=== PATIENT | male | born 1975 | race Caucasian/White ===

== ENCOUNTER 2020-05-30 18:36 | Emergency (ER) | payer MEDICARE, SELFPAY ==
--- NOTE | ~2020-05-30 | XR_ITS ---
XR forearm RT 2V 05/30/2020 19:29 INDICATION: Right arm pain PROCEDURE: 2 views right forearm COMPARISON: No prior studies for comparison. FINDINGS: Fracture, dislocation or subluxation is not identified. There is dorsal soft tissue swellin g. No foreign bodies are identified. IMPRESSION: 1: NO ACUTE BONE OR JOINT ABNORMALITY IDENTIFIED. Reviewed, dictated and finalized at location A.
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
[2020-05-30 18:55] VITALS: BP 138/85; PULSE 101; RESP 20; TEMP 37.6; O2SAT 98
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
== END 2020-05-30 20:06 | disposition home or self-care (01) ==
PROVIDERS: Emergency Provider Nurse Practitioner
DX: S49.91XA Unspecified injury of right shoulder and upper arm, initial encounter (principal); V48.5XXA Car driver injured in noncollision transport accident in traffic accident, initial encounter
CPT/HCPCS: 73030; 73090; 99214; A4565; G0463

== ENCOUNTER 2022-05-09 10:46 | Emergency (ER) | payer OTHER, SELFPAY ==
[2022-05-09 11:12] VITALS: BP 130/71; PULSE 70; RESP 16; TEMP 36.8; O2SAT 98
--- NOTE | 2022-05-09 11:46 | ED.GENADULT ---
HPI - General Adult General Chief complaint: Upper Respiratory Infection Stated complaint: Sinus Pain,Facial Swelling Source: patient Mode of arrival: ambulatory Limitations: no limitations History of Present Illness HPI narrative: Patient presents for evaluation of sinus symptoms. He reports sinus congestion and thick mucopurulent drainage from both nares. He has maxillary swelling. He has had similar symptoms in the past with bacterial sinusitis. No fever, chills, sore throat, otalgia, cough, SOB, nausea, vomiting, diarrhea. He is not taking any medication for his symptoms. No recent sick contacts. He smokes 1 ppd. He has required oral abx in past. He is taking flonase which is minimally helping. Related Data Home Medications Medication Instructions Recorded Confirmed tramadol 50 mg tablet 50 mg PO Q4H PRN Pain 05/30/20 05/09/22 Allergies Allergy/AdvReac Type Severity Reaction Status Date / Time No Known Allergies Allergy Verified 05/09/22 11:12 Review of Systems Review of Systems: CONSTITUTIONAL: Denies fever, chills, or sweats. EYES: Denies visual changes, redness, or discharge. ENT: Reports sinus congestion and thick mucopurulent discharge from both nares. Denies sore throat, or otalgia. CARDIOVASCULAR: Denies chest pain, palpitations, or edema. RESPIRATORY: Denies cough or dyspnea. GASTROINTESTINAL: Denies abdominal pain, nausea, vomiting, or diarrhea. GENITOURINARY: Denies dysuria or hematuria. SKIN: Denies rash or itching. MUSCULOSKELETAL: Denies back pain, joint pain, or myalgia. NEUROLOGIC: Denies headache, numbness, dizziness, or weakness. PSYCHIATRIC: Denies anxiety or depression. [facility] Past Medical History Medical History Sinusitis Surgical History Surgical History No pertinent past surgical history Family History Family History Mother Diabetes mellitus Social History Social History Smoking packs per day: 1 Smoking cigarettes per day: 20.0 Smoking status: Current every day smoker Tobacco type: cigarettes Substance use: never Living arrangements: with family Gender identity (if verbalized by the patient): Male Sexual Orientation (if Verbalized by the Patient): Straight or Heterosexual Spiritual care concerns: No Exam Narrative: GENERAL: Well-appearing, well-nourished, and in no acute distress. HEAD: Normocephalic, atraumatic. EYES: PERRLA and EOMI. ENT: Nares clear, no rhinorrhea or epistaxis. Right maxillary facial tenderness and swelling present. Membranes moist. Oropharynx without tonsillar hypertrophy exudate or other lesions. Bilateral TMs pearly hall nonbulging NECK: Supple. No adenopathy or masses. No carotid bruits or JVD CHEST: Clear to auscultation. No respiratory distress. No wheezes rales or rhonchi HEART: Regular rate and rhythm. No murmur heard. Normal peripheral pulses. ABDOMEN: Soft, nontender, nondistended, normal active bowel sounds. EXTREMITIES: Normal range of motion. No edema. SKIN: Warm, dry, no rash. NEURO: No focal deficits. Alert and oriented x3. PSYCH: Normal mood and affect. Course Course Emergency Course: This is a 47-year-old male who presented with right maxillary sinus swelling and mucopurulent discharge from his nares. He meets criteria for acute bacterial rhinosinusitis. We will treat with augmentin. Follow up outpatient for further evaluation and treatment and return for worsening symptoms. Pt in agreement with plan of care Level of Care: Express Care Visit Vital Signs Vital signs: Vital Signs Temperature 36.8 C 05/09/22 11:12 Pulse Rate 70 05/09/22 11:12 Respiratory Rate 16 05/09/22 11:12 Blood Pressure 130/71 05/09/22 11:12 Pulse Oximetry 98 05/09/22 11:12 Ox
== END 2022-05-09 11:55 | disposition home or self-care (01) ==
PROVIDERS: Emergency Provider Nurse Practitioner
DX: J32.9 Chronic sinusitis, unspecified (principal); F17.210 Nicotine dependence, cigarettes, uncomplicated
CPT/HCPCS: 99213; G0463

== ENCOUNTER 2023-07-07 09:37 | Emergency (ER) | payer MEDICARE, MEDICAID, SELFPAY ==
[2023-07-07 09:50] VITALS: BP 124/78; PULSE 78; RESP 20; TEMP 37.1; O2SAT 96
--- NOTE | 2023-07-07 10:06 | ED.URI ---
HPI - URI/Sore Throat General Chief Complaint: Upper Respiratory Infection Stated Complaint: sinus infection Time Seen by Provider: 07/07/23 09:55 Source: patient Mode of arrival: ambulatory Limitations: no limitations History of Present Illness HPI Narrative: Jeffery is a 48-year-old male patient presenting to the clinic today with complaints of sinus congestion x3 days. He reports he is having a lot of sneezing, sinus pressure, and congestion. He reports he was outside over the weekend and every wounds cutting the grass and he suffers from seasonal allergies. Nasal drainage is green. He does not wish to have a COVID test. MD elicited complaint: nasal congestion and sinus pain Related Data Home Medications Medication Instructions Recorded Confirmed tramadol 50 mg tablet 50 mg PO Q4H PRN Pain 05/30/20 07/07/23 Allergies Allergy/AdvReac Type Severity Reaction Status Date / Time No Known Allergies Allergy Verified 07/07/23 10:07 Review of Systems Review of Systems: Pertinent positives per HPI. Patient denies any fever, chills, rash, headache, visual changes, dizziness, cough, shortness of breath, chest pain, palpitations, nausea, vomiting, diarrhea, constipation, abdominal pain, or any urinary issues. [facility] Past Medical History Medical History (Updated 07/07/23 @ 10:07 by Rock Messer APRN) Sinusitis Surgical History Surgical History No pertinent past surgical history Family History Family History Mother Diabetes mellitus Social History Social History Smoking packs per day: 1 Smoking cigarettes per day: 20.0 Smoking status: Current every day smoker Tobacco type: cigarettes Substance use: never Living arrangements: with family Gender identity (if verbalized by the patient): Male Sexual Orientation (if Verbalized by the Patient): Straight or Heterosexual Spiritual care concerns: No Comments At the time of my signature, I reviewed and agree with the nursing past medical, surgical, social, and family history. There is no relevant family history pertinent to the patient complaint. Exam Narrative: General: Well-developed, well nourished, in no apparent distress Head: Normocephalic, atraumatic Eyes: Pupils equally round and reactive to light bilaterally, EOM intact, sclera and conjunctive clear, no discharge, lids normal Ears: TMs intact and congested, ear canals clear, no drainage, grossly hearing normal. Nose: Nares patent, clear nasal discharge, moderate inflammation, no sinus tenderness. Mouth: Oral pharynx without lesions or masses, good dentition, MMM. Postnasal drip Neck: Supple, trachea midline, no enlargement of anterior or posterior cervical nodes, no thyroid masses or goiter palpable. Cardio: Regular rate and rhythm, s1 and s2 normal, no murmur appreciated. Resp: Clear to auscultation bilaterally, no rhonchi, rales, wheezing or rubs Course Course Emergency Course: Portions of this record may have been created with voice recognition software. Level of Care: Express Care Visit Vital Signs Vital signs: Vital Signs Temperature 37.1 C 07/07/23 09:50 Pulse Rate 78 07/07/23 09:50 Respiratory Rate 20 07/07/23 09:50 Blood Pressure 124/78 07/07/23 09:50 Pulse Oximetry 96 07/07/23 09:50 Oxygen Delivery Room Air 07/07/23 09:50 Temperature 37.1 C 07/07/23 09:50 Pulse Rate 78 07/07/23 09:50 Respiratory Rate 20 07/07/23 09:50 Blood Pressure 124/78 07/07/23 09:50 Pulse Oximetry 96 07/07/23 09:50 Oxygen Delivery Room Air 07/07/23 09:50 Vital signs reviewed MDM - URI/Sore Throat MDM Narrative Medical decision making narrative: At the time of visit patient is resting comfortably on the exam table. Declining COVID test today. i suspect p
== END 2023-07-07 10:10 | disposition home or self-care (01) ==
PROVIDERS: Emergency Provider Nurse Practitioner Family
DX: J06.9 Acute upper respiratory infection, unspecified (principal); F17.210 Nicotine dependence, cigarettes, uncomplicated
CPT/HCPCS: 99213; G0463

== ENCOUNTER 2023-12-17 08:22 | Emergency (ER) | payer MEDICARE, MEDICAID, SELFPAY ==
[2023-12-17 08:29] VITALS: BP 144/75; PULSE 77; RESP 18; TEMP 36.6; O2SAT 99
--- NOTE | 2023-12-17 09:09 | ED.URI ---
HPI - URI/Sore Throat General Chief Complaint: Upper Respiratory Infection Stated Complaint: sinus issues Time Seen by Provider: 12/17/23 09:09 Source: patient, RN notes reviewed and old records reviewed Mode of arrival: ambulatory Limitations: no limitations History of Present Illness HPI Narrative: 48 year old male who presents to [facility] care with complaints of sinus pain and pressure especially to the left side of his face and headache discomfort frontal since Wednesday.Patient reports history of sinus infections and does not want any testing done, states he needs an antibiotic. Patient reports that he has been taking Zyrtec, Ibuprofen and has been using nasal spray OTC. Patient reports no fevers or any sore throat or acute cough or body aches. MD elicited complaint: rhinorrhea, nasal congestion, sinus pain and other (headache and facial pressure) Pertinent past history: sinusitis and other (tobacco use) Onset (ago): day(s) (5-6 days) Consistency: progressively worsening Pain scale (0-10): 5 Description of mucous: yellow and green Able to tolerate fluids by mouth: Yes Treatments prior to arrival: ibuprofen and other (Zyrtec and nasal spray) Related Data Home Medications Medication Instructions Recorded Confirmed tramadol 50 mg tablet 50 mg PO Q4H PRN Pain 05/30/20 07/07/23 Allergies Allergy/AdvReac Type Severity Reaction Status Date / Time No Known Allergies Allergy Verified 07/07/23 10:07 Review of Systems Review of Systems: CONSTITUTIONAL: Denies malaise, chills, sweats, or fever. EYES: Denies visual changes, redness, or discharge. ENT: Reports rhinorrhea, congestion, sinus pain,no otalgia and no sore throat. CARDIOVASCULAR: Denies chest pain, palpitations, or edema. RESPIRATORY: Reports occasional cough.? Denies dyspnea. GASTROINTESTINAL: Denies abdominal pain, nausea, vomiting, diarrhea SKIN: Denies rash or itching. MUSCULOSKELETAL: Denies myalgia. NEUROLOGIC:Reports frontal headache. All systems reviewed & are unremarkable except as noted in HPI and below PMFSH Past Medical History Medical History (Updated 12/18/23 @ 11:21 by Marcie Storm NP) Anxiety Arthritis Back pain Hx of migraines Hypertension Sinusitis Surgical History Surgical History (Updated 12/18/23 @ 11:27 by Marcie Storm NP) History of total knee arthroplasty Family History Family History Mother Diabetes mellitus Social History Social History Smoking packs per day: 1 Smoking cigarettes per day: 20.0 Smoking status: Current every day smoker Tobacco type: cigarettes Substance use: never Living arrangements: with family Gender identity (if verbalized by the patient): Male Sexual Orientation (if Verbalized by the Patient): Straight or Heterosexual Spiritual care concerns: No Comments At time of signature, agree with nursing past medical, surgical, social and family history. There is no relevant family history pertinent to the presenting complaint Exam Narrative: GENERAL: Well-appearing, well-nourished, and in no acute distress. HEAD: Normocephalic EYES: PERRLA, conjunctivae clear ENT: Nares clear, turbinates edematous and erythematous, yellow discharge, sinus pressure especially left and frontal headache. Mucous membranes moist. TM pearly hall with dull light reflex bilaterally; no tragal tenderness. Oropharynx erythematous without lesions. Tonsils not enlarged and without exudate, no drooling, no hoarseness, no trismus, uvula midline.post nasal drainage NECK: Supple. No lymphadenopathy CHEST: Clear to auscultation, breath sounds equal. No wheezing, rhonchi, rales, or stridor. No respiratory distress, speaks in full sentences.SAO2 99% on room air HEART: Regular rate and rhythm. No murmur heard. SKIN: Warm, dry, no rash. NEURO: Alert and oriented x3. PSY
== END 2023-12-17 09:37 | disposition home or self-care (01) ==
PROVIDERS: Emergency Provider Registered Nurse
DX: J01.40 Acute pansinusitis, unspecified (principal); F17.210 Nicotine dependence, cigarettes, uncomplicated; I10 Essential (primary) hypertension; M19.90 Unspecified osteoarthritis, unspecified site
CPT/HCPCS: 99213; G0463

== ENCOUNTER 2023-12-29 09:04 | Emergency (ER) | payer MEDICARE, MEDICAID, SELFPAY ==
[2023-12-29 09:11] VITALS: BP 160/88; PULSE 76; RESP 16; TEMP 37; O2SAT 96
--- NOTE | 2023-12-29 10:11 | ED.URI ---
HPI - URI/Sore Throat General Chief Complaint: Upper Respiratory Infection Stated Complaint: sinus infection/swollen face History of Present Illness HPI Narrative: Pt is a 48 y/o male, returns to the with persistent left nasal congestion and now facial swelling, despite taking Augmentin and using flonase and prescribed. He was here on 12/17/2023 and given 10 days of Augmentin. He reports taking as directed without missed doses but has 4 tablets remaining in an Rx that should have been completed on 12/27/2023. He does note some bad teeth in the upper maxilla on the same side but denies focal dentalgia. He denies fevers or chills, he has no nasal discharge and he denies any other complaints or modifying factors. Related Data Home Medications Medication Instructions Recorded Confirmed tramadol 50 mg tablet 50 mg PO Q4H PRN Pain 05/30/20 07/07/23 Allergies Allergy/AdvReac Type Severity Reaction Status Date / Time No Known Allergies Allergy Verified 07/07/23 10:07 Review of Systems ENT: Comments: refer to [facility] Past Medical History Medical History (Updated 12/29/23 @ 10:19 by KYLE Mesa) Anxiety Arthritis Back pain Hx of migraines Hypertension Sinusitis Surgical History Surgical History (Updated 12/18/23 @ 11:27 by Marcie Storm NP) History of total knee arthroplasty Family History Family History Mother Diabetes mellitus Social History Social History Smoking packs per day: 1 Smoking cigarettes per day: 20.0 Smoking status: Current every day smoker Tobacco type: cigarettes Substance use: never Living arrangements: with family Gender identity (if verbalized by the patient): Male Sexual Orientation (if Verbalized by the Patient): Straight or Heterosexual Spiritual care concerns: No Exam Const: General: healthy appearing, no acute distress and alert Nutritional Appearance: well nourished Orientation/consciousness: patient oriented x3 Limitations: no limitations HENMT: Head: normal to inspection Ears: external ears normal, TM's normal bilaterally and EAC's normal Face/Nose/Sinus: Normal external nose present and Normal nares present Face and sinus: sinuses nontender Teeth and gingiva: abnormal tooth and associated gingiva upper left second bicuspid other (gross decay below the gingival line with focal swelling the maxilla around this area externally, no erythema or cellulitis noted) Throat: posterior oropharynx normal and uvula midline Other: pt has no swelling over the maxillary sinus but rather, lower in the mandible, correlating with grossly decayed teeth. No fluctuance noted, no trismus Course Course Emergency Course: suspect dental abscess. pt is not complaint with Augmentin however, he has completed most of the Rx over the past 14 days and I would expect some improvement for his dental abscess in this case. Plan therefore, to treat with clindamycin. An OTC probiotic is stressed, as well as, dental FU. Pt is agreeable with plan. He is advised he must proceed to the er if facial swelling increases or tracks towards the eye, or if fevers arise. Pt is agreeable with plna. Level of Care: Express Care Visit ([id number]) Vital Signs Vital signs: Vital Signs Temperature 37.0 C 12/29/23 09:11 Pulse Rate 76 12/29/23 09:11 Respiratory Rate 16 12/29/23 09:11 Blood Pressure 160/88 H 12/29/23 09:11 Pulse Oximetry 96 12/29/23 09:11 Oxygen Delivery Room Air 12/29/23 09:11 Temperature 37.0 C 12/29/23 09:11 Pulse Rate 76 12/29/23 09:11 Respiratory Rate 16 12/29/23 09:11 Blood Pressure 160/88 H 12/29/23 09:11 Pulse Oximetry 96 12/29/23 09:11 Oxygen Delivery Room Air 12/29/23 09:11 MDM - URI/Sore Throat MDM Narrative Medical decision making narrative: STOP Augmentin, complete Clindamycin as directed,
== END 2023-12-29 10:20 | disposition home or self-care (01) ==
PROVIDERS: Emergency Provider Nurse Practitioner Family
DX: K04.7 Periapical abscess without sinus (principal); M19.90 Unspecified osteoarthritis, unspecified site; I10 Essential (primary) hypertension; F17.210 Nicotine dependence, cigarettes, uncomplicated; K02.9 Dental caries, unspecified
CPT/HCPCS: 99213; G0463

== ENCOUNTER 2024-04-11 14:22 | Emergency (ER) | payer MEDICARE, MEDICAID, SELFPAY ==
[2024-04-11 14:26] VITALS: BP 157/89; PULSE 76; RESP 20; TEMP 37.1; O2SAT 99
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
== END 2024-04-11 15:10 | disposition home or self-care (01) ==
PROVIDERS: Emergency Provider Nurse Practitioner Family
DX: K04.7 Periapical abscess without sinus (principal); F17.210 Nicotine dependence, cigarettes, uncomplicated; M19.90 Unspecified osteoarthritis, unspecified site; I10 Essential (primary) hypertension
CPT/HCPCS: 99213; G0463